=== PATIENT | female | born 1985 | race African-American/Black ===

== ENCOUNTER 2019-08-07 18:47 | Emergency (ER) | payer MEDICAID, OTHER ==
[~2019-08-07] VITALS: Ht 180.3 cm; Wt 118.0 kg
[~2019-08-07 18:47] MED LIST: PRENATALS
[2019-08-07] MEDS ORDERED: ONDANSETRON 4MG ODT PO ONE (19:30)
[2019-08-07] MEDS ORDERED: HYDROCODONE/ACETAMINOPHEN 5/325MG TABLET PO ONE (19:30)
[2019-08-07 20:30] VITALS: BP 129/78
== END 2019-08-07 20:50 | disposition home or self-care (01) ==
LOC: ER 18:47
DX: S40.022A Contusion of left upper arm, initial encounter (principal); V43.52XA Car driver injured in collision with other type car in traffic accident, initial encounter; Y93.89 Activity, other specified; Y92.89 Other specified places as the place of occurrence of the external cause; Y99.8 Other external cause status
CPT/HCPCS: 29125; 73090; 81025; 99283; Q0162; A4565